=== PATIENT | female | born 1955 | race African-American/Black ===

== ENCOUNTER 2017-08-13 14:46 | Outpatient (CLI) | payer OTHER | END 2017-08-13 14:47 | disposition short-term general hospital (02) | LOC: AMB 14:46 | DX: R06.02 Shortness of breath (principal) | CPT/HCPCS: A0425; A0427 ==

== ENCOUNTER 2017-08-13 14:52 | Emergency (ER) | payer OTHER ==
[~2017-08-13] VITALS: Ht 154.9 cm; Wt 61.7 kg
[2017-08-13 16:52] LABS: PLATELET COUNT 209 K/uL (152-353)
[2017-08-13 17:00] LABS: POTASSIUM 3.8 mmol/L (3.6-5.2)
[2017-08-13 19:04] VITALS: BP 199/99
== END 2017-08-13 20:58 | disposition short-term general hospital (02) ==
LOC: ED 14:52
DX: J18.9 Pneumonia, unspecified organism (principal); N18.6 End stage renal disease; Z99.2 Dependence on renal dialysis
CPT/HCPCS: 80053; 85027; 99285